=== PATIENT | female | born 1935 | race Caucasian/White ===

== ENCOUNTER → 2016-07-15 | Outpatient (CLI) | payer MEDICARE, BC ==
[~2016-07-15] MED LIST: AMOXICILLIN PO; CERTAGEN PO; COUMADIN PO; COUMADIN7.5 MG PO; DARVOCET-N 1001 TAB PO; FISH OIL 1,0001 CA2; HCTZ PO; LANOXIN PO; LISINOPRIL PO; LISINOPRIL-HCTZ1 T14 PO; LOVENOX SUBQ; MIACALCIN4 ML; MICRO-K PO; OYSTER CALCIUM500 MG PO; POTASSIUM CHLOR8 ME1 PO; PRINZIDE; SYNTHROID PO; TOPROL XL PO; VESICARE PO; VITAMIN D2000 UNIT PO; ZESTORETIC 20/11 TAB PO; ZOCOR20 MG PO
--- NOTE | ~2016-07-15 | MY10 ---
[facility] A Service of [facility] RADIOLOGY TEXT RESULTS PATIENT: VILMA FERRARA LOCATION: [facility] : 35 UNIT #: [id number] AGE: [address]: JORGE MILLER MD SEX: F ORDER DR: [id number] [facility]. [place], [place] [address] [id number] O MR#: [id number] Acc #: [id number] NAME: VILMA FERRARA : 1935 SEX: F STUDY DATE/TIME: 07/15/2016 10:59 UNIT: [facility] ROOM: STUDY DESCRIPTION: MY Mammogram Screen Uni Dig Rt Attending Physician: Jorge Miller M.D. Referring Physician: Oscar Payne M.D. Ordering Physician: Jorge Miller M.D. Primary Care Physician: Jorge Miller M.D. MEDICAL IMAGING REPORT This report is preliminary unless electronic signature is present EXAM Right digital screening mammogram. INDICATION Routine screening. No current complaints. No family hst of breast cancer. IMPRESSION 07/13/2015, 01/09/2015, 06/20/2014. FINDINGS MLO and CC digital views of the right breast were obtained with and without implant space technique. There is a some pectoral silicone implant. The breast has a small amount of fibroglandular density and there is a stable nodule measuring 8 mm in diameter in the right breast. There is another stable 5 nodule as well. These nodules have been present since at least 2010. IMPRESSION No change and no evidence of malignancy. Mucous membranes BIRADS: 2 Benign findings. Dictated by... Lance Villavicencio M.D. THIS IS AN ELECTRONICALLY VERIFIED REPORT Lance Villavicencio M.D. at 07/16/2016 7:13 AM FEL/gz TD: 07/15/2016 17:15 JOB #: [id number] [facility] A Service of [facility] RADIOLOGY TEXT RESULTS PATIENT: VILMA FERRARA LOCATION: [facility] #: [id number] : 35 UNIT #: [id number] AGE: [address]: JORGE MILLER MD SEX: F ORDER DR: MEDICAL IMAGING REPORT COPY
== END | disposition home or self-care (01) ==
LOC: CMAM 10:31
DX: Z12.31 Encounter for screening mammogram for malignant neoplasm of breast (principal)
CPT/HCPCS: G0202

== ENCOUNTER 2016-08-11 12:31 | Emergency (ER) | payer MEDICARE, BC ==
--- NOTE | ~2016-08-11 | US85 ---
[facility] A Service of [facility] RADIOLOGY TEXT RESULTS PATIENT: VILMA FERRARA LOCATION: [facility] : 35 UNIT #: [id number] AGE: [address]: Javier Gongora MD SEX: F ORDER DR: [id number] [facility] [address] [place], [place] [address] [id number] E MR#: [id number] Acc #: [id number] NAME: VILMA FERRARA. : 1935 SEX: F STUDY DATE/TIME: 08/11/2016 12:48 UNIT: [facility] ROOM: STUDY DESCRIPTION: LE Veins Unilat or Ltd Stdy Attending Physician: Javier Gongora M.D. Ordering Physician: Nurys Wells M.D. Primary Care Physician: Desmond Miller M.D. MEDICAL IMAGING REPORT This report is preliminary unless electronic signature is present EXAM Right lower extremity venous duplex Doppler. INDICATION Right lower extremity edema and leg pain for 3 days. COMPARISON None available. FINDINGS No deep vein thrombus is identified. The right common femoral vein through the right popliteal vein are widely patent. There is normal compressibility, spontaneous, and phasic waveforms. No calf vein thrombus. IMPRESSION Negative right lower extremity deep vein thrombosis. Dictated by... Conrad Centeno M.D. THIS IS AN ELECTRONICALLY VERIFIED REPORT Conrad Centeno M.D. at 08/12/2016 2:12 PM LUIS/cecilia TD: 08/11/2016 19:02 JOB #: [id number] MEDICAL IMAGING REPORT Page 1 of 1 COPY
[2016-08-11 11:51] LABS: BASOPHIL% 0.8 % (0-2.5); EOSINOPHIL# 0.1 X10e3 (0-0.7); EOSINOPHIL% 2.1 % (0.0-7.0); HEMOGLOBIN 14.2 gm/dL (12.0-16.0); LYMPHOCYTE% 19.2 % (17.0-45.0); MEAN CELL VOLUME 89.5 FL (83-96); MEAN CORPUSCULAR HEMOGLOBIN 29.5 PG (28-34); MEAN PLATELET VOLUME 10.9 FL (6.5-11.5); MONOCYTE# 0.6 X10e3 (0-1.0); MONOCYTE% 12.1 % (3.0-12.0); NEUTROPHIL# 3.4 X10e3 (1.5-7.1); NEUTROPHIL% 65.8 % (40-75); RED BLOOD COUNT 4.81 X10e (3.90-5.30); RED CELL DISTRIBUTION WIDTH 13.2 % (11.0-15.5); WHITE BLOOD COUNT 5.1 X10e3 (4.0-10.5)
[2016-08-11 11:59] LABS: INR 2.5; PROTHROMBIN TIME (PATIENT) 27.1 SECONDS (9.6-11.5)
[2016-08-11 12:02] LABS: DIFF IND NO; PLATELET COUNT 153 X10e3 (140-420)
[2016-08-11 12:15] LABS: BUN/CREATININE RATIO 21.66; CALCIUM SERUM 9.5 mg/dL (8.4-10.2); CREATININE SERUM 1.2 mg/dL (0.6-1.4); GLOM FILT RATE Estimated 42.4 mL/min (>60)
== END 2016-08-11 12:40 | disposition home or self-care (01) ==
LOC: CED 12:31
PROVIDERS: Emergency Medicine
DX: M79.604 Pain in right leg (principal); Z86.718 Personal history of other venous thrombosis and embolism; I48.91 Unspecified atrial fibrillation; I10 Essential (primary) hypertension; Z90.49 Acquired absence of other specified parts of digestive tract; Z90.710 Acquired absence of both cervix and uterus; Z90.12 Acquired absence of left breast and nipple; Z98.890 Other specified postprocedural states; Z79.01 Long term (current) use of anticoagulants
CPT/HCPCS: 36415; 80048; 82550; 85025; 85610; 93971; 99284